=== PATIENT | female | born 1935 | race Two or more races ===

== ENCOUNTER 2017-06-18 12:30 | Emergency (ER) | payer OTHER ==
[~2017-06-18] VITALS: Ht 149.9 cm; Wt 45.8 kg
[2017-06-18 12:37] VITALS: BP 123/66
[2017-06-18] MEDS ORDERED: TETANUS-DIPTH-ACEL PERTUSSIS 0.5ML SYRG IM ONE (13:30)
[2017-06-18] MEDS ORDERED: NEOMYCIN-BACITRACIN-POLYM UNITDOSE PKG TOP OINT TOP ONE (13:30)
== END 2017-06-18 13:40 | disposition home or self-care (01) ==
LOC: ER 12:30
DX: S61.402A Unspecified open wound of left hand, initial encounter (principal); W54.0XXA Bitten by dog, initial encounter; Y93.89 Activity, other specified; Y99.8 Other external cause status; Y92.89 Other specified places as the place of occurrence of the external cause
CPT/HCPCS: 90471; 90715

== ENCOUNTER 2017-11-15 18:54 | Inpatient (IN) | payer OTHER ==
[~2017-11-15] VITALS: Ht 149.9 cm; Wt 49.9 kg
[2017-11-15 20:57] LABS: Basophils # (auto) 0.1 uL; Basophils % (auto) 0.8 % (0.0-2.0); Eosinophils # (auto) 0.1 uL; Eosinophils % (auto) 0.7 % (0.0-7.0); Hematocrit 39.5 % (36.0-46.0); Hemoglobin 12.9 g/dL (12.2-16.2); Lymphocytes # (auto) 1.7 uL; Lymphocytes % (auto) 12.9 % (10.0-50.0); Mean Corpuscular Hemoglobin 31.5 pg (28.0-32.0); Mean Corpuscular Hgb Conc. 32.7 g/dL (32.0-36.0); Mean Corpuscular Volume 96.4 fL (80.0-100.0); Monocytes # (auto) 0.8 uL; Monocytes % (auto) 5.9 % (0.0-12.0); Neutrophils # (auto) 10.5 uL; Neutrophils % (auto) 79.7 % (37.0-80.0); Platelet Count (auto) 152 10^3/uL (140-450); White Blood Cell 13.2 10^3/uL (4.4-10.8)
[2017-11-15 21:13] LABS: INR 0.92 (0.9-1.15); Partial Thromboplastin Time 26.3 sec (22.64-33.71)
[2017-11-15 21:15] LABS: Alanine Aminotransferase 14 U/L (13-56); Albumin 2.9 g/dL (3.4-5.0); Anion Gap 5 (5-15); Aspartate Aminotransferase 12 U/L (15-37); BUN/Creatinine Ratio 16.2; Blood Urea Nitrogen 12 mg/dL (7-18); Calcium 8.6 mg/dL (8.5-10.1); Carbon Dioxide 30 mmol/L (21-32); Chloride 106 mmol/L (98-107); GFR African American 97 mL/min; GFR Non-African American 80 mL/min; Glucose 80 mg/dL (74-106); Magnesium 1.8 mg/dL (1.6-2.6); Potassium 3.9 mmol/L (3.5-5.1); Sodium 141 mmol/L (136-145)
[2017-11-15 21:19] LABS: Alkaline Phosphatase 58 U/L (45-117); Bilirubin, Total 0.5 mg/dL (0.2-1.0); Total Protein 6.2 g/dL (6.4-8.2)
[2017-11-16] VITALS (7 sets, daily range): BP systolic 107–129; BP diastolic 56–77
[2017-11-16] MEDS ORDERED: ACETAMINOPHEN 325 MG TAB PO PRN (00:30)
[2017-11-16] MEDS ORDERED: TEMAZEPAM 15 MG CAP PO PRN (00:30)
[2017-11-16] MEDS ORDERED: ONDANSETRON HCL 4 MG/2 ML VIAL IV PRN (00:30)
[2017-11-16] MEDS ORDERED: MORPHINE SULFATE 4 MG/ML SYR/VIAL IV PRN (00:30)
[2017-11-16] MEDS ORDERED: DOCUSATE SOD 100 MG CAP PO PRN (00:30)
[2017-11-16] MEDS ORDERED: NITROGLYCERIN 0.4 MG SL TAB SL PRN (00:30)
[2017-11-16] MEDS ORDERED: LEVOFLOXACIN 750MG 150 ML IV ONE (00:30)
[2017-11-16] MEDS ORDERED: LEVOFLOXACIN 750MG 150 ML IV SCH (10:00)
[2017-11-16] MEDS: ENOXAPARIN SOD 40 MG/0.4 ML SYRINGE SC SCH (10:03)
[2017-11-16] MEDS: HYDROcodone-ACET 5/325MG TAB PO PRN ×3 (10:04→22:44)
[2017-11-16 10:13] LABS: Urine Bacteria FEW /hpf (None Seen); Urine Blood Negative /uL (Negative); Urine Hyaline Cast FEW /lpf (0 - 2); Urine Specific Gravity 1.021 (1.001-1.035); Urine WBC 3 /hpf (0 - 5)
[2017-11-16] MEDS ORDERED: cefTRIAXone 1GM/10ml IVPUSH 10 ML IV ONE (12:30)
[2017-11-16] MEDS ORDERED: AZITHROMYCIN 500MG/ 250ML 250 ML IV ONE (13:00)
[2017-11-16] MEDS: IPRATROPIUM BROM 0.5 MG/2.5ML INH SOL NEB SCH ×2 (14:45→18:02)
[2017-11-16] MEDS ORDERED: ATORVASTATIN 20 MG TAB PO SCH (22:00)
[2017-11-16] MEDS ORDERED: PATIENTS OWN MEDICATION (simvastatin 20 MG) PO SCH (22:00)
[2017-11-17 04:54] VITALS: BP 110/53
[2017-11-17] MEDS: IPRATROPIUM BROM 0.5 MG/2.5ML INH SOL NEB SCH ×3 (06:00→14:08)
[2017-11-17 06:47] LABS: Basophils # (auto) 0 uL; Basophils % (auto) 0.4 % (0.0-2.0); Eosinophils # (auto) 0.2 uL; Hematocrit 37.7 % (36.0-46.0); Hemoglobin 12.6 g/dL (12.2-16.2); Lymphocytes # (auto) 1.6 uL; Lymphocytes % (auto) 19.2 % (10.0-50.0); Mean Corpuscular Hemoglobin 32.3 pg (28.0-32.0); Mean Corpuscular Hgb Conc. 33.5 g/dL (32.0-36.0); Mean Corpuscular Volume 96.3 fL (80.0-100.0); Monocytes # (auto) 0.6 uL; Monocytes % (auto) 7.5 % (0.0-12.0); Neutrophils # (auto) 5.7 uL; Neutrophils % (auto) 70.9 % (37.0-80.0); Platelet Count (auto) 132 10^3/uL (140-450); Red Blood Cells 3.91 10^6/uL (4.0-5.20); Red Cell Distribution Width 13.9 % (11.8-14.3); White Blood Cell 8.1 10^3/uL (4.4-10.8)
[2017-11-17 07:10] LABS: Albumin 2.5 g/dL (3.4-5.0); BUN/Creatinine Ratio 17.3; Bilirubin, Total 0.4 mg/dL (0.2-1.0); Calcium 8.4 mg/dL (8.5-10.1); Magnesium 2.1 mg/dL (1.6-2.6); Potassium 4.1 mmol/L (3.5-5.1); Total Protein 5.4 g/dL (6.4-8.2)
[2017-11-17 07:30] VITALS: BP 156/54
[2017-11-17] MEDS ORDERED: PRED-559 PO (07:55)
[2017-11-17] MEDS ORDERED: SERT-274 PO (07:58)
[2017-11-17] MEDS ORDERED: ASPI81CH43 PO (07:59)
[2017-11-17] MEDS ORDERED: DEXL60CA3 PO (08:00)
[2017-11-17] MEDS ORDERED: BUDE0.5S IN (08:03)
[2017-11-17 08:35] VITALS: BP 156/54
[2017-11-17] MEDS: ALBUTEROL SULF 2.5 MG/0.5ML(0.5%) NEB SOLN NEB PRN ×2 (08:38→14:08)
[2017-11-17] MEDS: HYDROcodone-ACET 5/325MG TAB PO PRN ×2 (08:42→13:56)
[2017-11-17] MEDS ORDERED: cefTRIAXone 1GM/10ml IVPUSH 10 ML IV SCH (09:00)
[2017-11-17] MEDS ORDERED: AZITHROMYCIN 500MG/ 250ML 250 ML IV SCH (10:00)
[2017-11-17 12:56] VITALS: BP 152/60
[2017-11-17] MEDS: ENOXAPARIN SOD 40 MG/0.4 ML SYRINGE SC SCH (13:45)
[2017-11-17 16:39] VITALS: BP 146/71
== END 2017-11-17 17:15 | DRG 190 ==
LOC: ER 18:54 → OVERFLOW 18:55 → EAST 11-16 12:59
PROVIDERS: ADMIT Nurse Practitioner; ATTEND Internal Medicine Geriatric Medicine
DX: J44.0 Chronic obstructive pulmonary disease with (acute) lower respiratory infection (principal); J13 Pneumonia due to Streptococcus pneumoniae; I50.9 Heart failure, unspecified; M41.9 Scoliosis, unspecified; Z99.81 Dependence on supplemental oxygen; J44.1 Chronic obstructive pulmonary disease with (acute) exacerbation; M19.90 Unspecified osteoarthritis, unspecified site
CPT/HCPCS: 36415; 70450; 71045; 80053; 81001; 83735; 83880; 84484; 85025; 85379; 85610; 85730; 93005; 94640; 94761; 96365; 96366; 96367; 96372; 96375; J1956

== ENCOUNTER 2018-02-06 14:04 | Inpatient (IN) | payer OTHER ==
[~2018-02-06] VITALS: Ht 157.5 cm; Wt 53.9 kg
[~2018-02-06 14:04] MED LIST: ASPI81CH43 PO; BUDE0.5S IN; DEXL60CA3 PO; PRED-559 PO; SERT-274 PO
[2018-02-06 15:04] LABS: Albumin 2.1 g/dL (3.4-5.0); BUN/Creatinine Ratio 35.4; Calcium 8.3 mg/dL (8.5-10.1); Potassium 4.2 mmol/L (3.5-5.1)
[2018-02-06 15:07] LABS: Basophils # (auto) 0 uL; Basophils % (auto) 0.2 % (0.0-2.0); Bilirubin, Total 0.7 mg/dL (0.2-1.0); Eosinophils # (auto) 0 uL; Eosinophils % (auto) 0.2 % (0.0-7.0); Hematocrit 38.1 % (36.0-46.0); Hemoglobin 12.6 g/dL (12.2-16.2); Lymphocytes % (auto) 9.2 % (10.0-50.0); Mean Corpuscular Hemoglobin 32.2 pg (28.0-32.0); Mean Corpuscular Hgb Conc. 33.1 g/dL (32.0-36.0); Mean Corpuscular Volume 97.4 fL (80.0-100.0); Monocytes # (auto) 0.3 uL; Monocytes % (auto) 2.5 % (0.0-12.0); Neutrophils # (auto) 9.1 uL; Neutrophils % (auto) 87.9 % (37.0-80.0); Nucleated Red Blood Cells % 0.1 %; Platelet Count (auto) 162 10^3/uL (140-450); Red Blood Cells 3.91 10^6/uL (4.0-5.20); Red Cell Distribution Width 16.5 % (11.8-14.3); Total Protein 5.9 g/dL (6.4-8.2); White Blood Cell 10.3 10^3/uL (4.4-10.8)
[2018-02-06] MEDS ORDERED: SODIUM CHLORIDE 0.9% 1,000 ML IV ONE (15:20)
[2018-02-06] MEDS ORDERED: ALBUTEROL SULF 2.5 MG/0.5ML(0.5%) NEB SOLN NEB ONE (15:30)
[2018-02-06] MEDS ORDERED: IPRATROPIUM BROM 0.5 MG/2.5ML INH SOL NEB ONE (15:30)
[2018-02-06] MEDS ORDERED: methylPREDNISolone SOD SUCC 125 MG/2 ML VL IV ONE (15:30)
[2018-02-06] MEDS ORDERED: cefTRIAXone 1GM/10ml IVPUSH 10 ML IV ONE (17:45)
[2018-02-06] MEDS: SODIUM CHLORIDE 0.9% 1,000 ML IV SCH (17:51)
[2018-02-06] MEDS ORDERED: TEMAZEPAM 15 MG CAP PO PRN (18:00)
[2018-02-06] MEDS ORDERED: NITROGLYCERIN 0.4 MG SL TAB SL PRN (18:00)
[2018-02-06] MEDS ORDERED: HYDROcodone-ACET 5/325MG TAB PO PRN (18:00)
[2018-02-06] MEDS ORDERED: PROMETHAZINE HCL 25 MG/ML 1ML IV PRN (18:00)
[2018-02-06] MEDS ORDERED: ALBUTEROL SULF 2.5 MG/0.5ML(0.5%) NEB SOLN NEB PRN (18:00)
[2018-02-06] MEDS ORDERED: LORazepam 0.5 MG TAB PO PRN (18:00)
[2018-02-06] MEDS: methylPREDNISolone SOD SUCC 40 MG/ML VL IV SCH ×2 (18:00→23:53)
[2018-02-06] MEDS ORDERED: MORPHINE SULF INJ 2 MG/ML SYRINGE 1ML IV PRN ×2 (18:00)
[2018-02-06] MEDS ORDERED: ACETAMINOPHEN 500 MG TAB PO PRN (18:00)
[2018-02-06] MEDS ORDERED: LACTULOSE 20Gm/30ML SOLN PO PRN (18:00)
[2018-02-06] MEDS: ALBUTEROL SULF 2.5 MG/0.5ML(0.5%) NEB SOLN NEB SCH (18:35)
[2018-02-06] MEDS: IPRATROPIUM BROM 0.5 MG/2.5ML INH SOL NEB SCH (18:35)
[2018-02-06] MEDS ORDERED: TRAZ100T2 PO (18:53)
[2018-02-06] MEDS ORDERED: CLON1TAB PO (18:53)
[2018-02-06] MEDS ORDERED: LORazepam 2MG/ML-1ML VIAL IV ONE (20:30)
[2018-02-06 22:00] VITALS: BP 119/54
[2018-02-06] MEDS: traZODone HCL 50 MG TAB PO SCH (23:13)
[2018-02-07] VITALS (9 sets, daily range): BP systolic 101–151; BP diastolic 36–75
[2018-02-07] MEDS: ALBUTEROL SULF 2.5 MG/0.5ML(0.5%) NEB SOLN NEB SCH ×4 (00:39→18:43)
[2018-02-07] MEDS: IPRATROPIUM BROM 0.5 MG/2.5ML INH SOL NEB SCH ×4 (00:39→18:43)
[2018-02-07] MEDS: BUDESONIDE (INHALATION) 0.5 MG/2 ML NEB NEB SCH ×3 (00:39→18:45)
[2018-02-07] MEDS: methylPREDNISolone SOD SUCC 40 MG/ML VL IV SCH ×3 (05:28→20:12)
[2018-02-07] MEDS: SODIUM CHLORIDE 0.9% 1,000 ML IV SCH (07:11)
[2018-02-07 08:45] LABS: Urine Bacteria NONE SEEN /hpf (None Seen); Urine Blood Negative /uL (Negative); Urine Mucus FEW (None Seen); Urine Specific Gravity 1.015 (1.001-1.035); Urine WBC 1 /hpf (0 - 5)
[2018-02-07] MEDS: AZITHROMYCIN 500MG/ 250ML 250 ML IV SCH (09:51)
[2018-02-07] MEDS: cefTRIAXone 1GM/10ml IVPUSH 10 ML IV SCH (09:51)
[2018-02-07] MEDS: SERTRALINE HCL 50 MG TAB PO SCH (09:52)
[2018-02-07] MEDS: ASPirin 81 mg TAB PO SCH (09:52)
[2018-02-07] MEDS: PANTOPRAZOLE 40 MG TAB PO SCH (09:52)
[2018-02-07] MEDS: ENOXAPARIN SOD 40 MG/0.4 ML SYRINGE SC SCH (09:53)
[2018-02-07] MEDS: clonazePAM 0.5 MG TAB PO PRN ×2 (12:39→21:58)
[2018-02-07] MEDS: OXYCODONE W/ ACETAMINOPHEN 5/325MG TABLET PO PRN (20:11)
[2018-02-07] MEDS: traZODone HCL 50 MG TAB PO SCH (21:57)
[2018-02-08] MEDS: methylPREDNISolone SOD SUCC 40 MG/ML VL IV SCH ×5 (00:53→23:56)
[2018-02-08] MEDS: SODIUM CHLORIDE 0.9% 1,000 ML IV SCH ×2 (00:54→09:15)
[2018-02-08 05:00] VITALS: BP 131/60
[2018-02-08 06:13] LABS: Basophils # (auto) 0 uL; Eosinophils # (auto) 0 uL; Hematocrit 28.2 % (36.0-46.0); Hemoglobin 9.7 g/dL (12.2-16.2); Lymphocytes # (auto) 0.3 uL; Lymphocytes % (auto) 3.1 % (10.0-50.0); Mean Corpuscular Hgb Conc. 34.4 g/dL (32.0-36.0); Mean Corpuscular Volume 95.8 fL (80.0-100.0); Monocytes # (auto) 0.2 uL; Monocytes % (auto) 1.6 % (0.0-12.0); Neutrophils # (auto) 10.3 uL; Neutrophils % (auto) 95.3 % (37.0-80.0); Platelet Count (auto) 163 10^3/uL (140-450); Red Blood Cells 2.95 10^6/uL (4.0-5.20); White Blood Cell 10.8 10^3/uL (4.4-10.8)
[2018-02-08 06:29] LABS: Calcium 8.5 mg/dL (8.5-10.1); Magnesium 2.2 mg/dL (1.6-2.6); Potassium 4.3 mmol/L (3.5-5.1)
[2018-02-08 06:31] LABS: BUN/Creatinine Ratio 37.1
[2018-02-08] MEDS: IPRATROPIUM BROM 0.5 MG/2.5ML INH SOL NEB SCH ×3 (06:41→19:05)
[2018-02-08] MEDS: ALBUTEROL SULF 2.5 MG/0.5ML(0.5%) NEB SOLN NEB SCH ×3 (06:41→19:05)
[2018-02-08] MEDS: BUDESONIDE (INHALATION) 0.5 MG/2 ML NEB NEB SCH ×2 (06:42→19:05)
[2018-02-08 09:01] VITALS: BP 129/67
[2018-02-08] MEDS: AZITHROMYCIN 500MG/ 250ML 250 ML IV SCH (09:14)
[2018-02-08] MEDS: OXYCODONE W/ ACETAMINOPHEN 5/325MG TABLET PO PRN ×3 (09:14→20:14)
[2018-02-08] MEDS: ASPirin 81 mg TAB PO SCH (09:14)
[2018-02-08] MEDS: ENOXAPARIN SOD 40 MG/0.4 ML SYRINGE SC SCH (09:15)
[2018-02-08] MEDS: cefTRIAXone 1GM/10ml IVPUSH 10 ML IV SCH (09:15)
[2018-02-08] MEDS: SERTRALINE HCL 50 MG TAB PO SCH (09:56)
[2018-02-08] MEDS: PANTOPRAZOLE 40 MG TAB PO SCH (09:56)
[2018-02-08 13:00] VITALS: BP 136/56
[2018-02-08 16:58] VITALS: BP 134/64
[2018-02-08 22:00] VITALS: BP 133/58
[2018-02-08] MEDS: ASCORBIC ACID 500 MG TAB PO SCH (22:00)
[2018-02-08] MEDS: PRO-STAT 64 30ML PO SCH (22:00)
[2018-02-08] MEDS: BOOST PLUS 8 ounce PO SCH (22:00)
[2018-02-08] MEDS: traZODone HCL 50 MG TAB PO SCH (22:00)
[2018-02-09] MEDS: ALBUTEROL SULF 2.5 MG/0.5ML(0.5%) NEB SOLN NEB SCH ×4 (00:22→18:50)
[2018-02-09] MEDS: IPRATROPIUM BROM 0.5 MG/2.5ML INH SOL NEB SCH ×4 (00:22→18:50)
[2018-02-09 04:50] VITALS: BP 130/61
[2018-02-09] MEDS: methylPREDNISolone SOD SUCC 40 MG/ML VL IV SCH ×3 (05:51→17:42)
[2018-02-09] MEDS: SODIUM CHLORIDE 0.9% 1,000 ML IV SCH ×2 (05:51→12:31)
[2018-02-09] MEDS: BUDESONIDE (INHALATION) 0.5 MG/2 ML NEB NEB SCH ×2 (06:29→18:51)
[2018-02-09 08:37] VITALS: BP 158/62
[2018-02-09] MEDS: ENOXAPARIN SOD 40 MG/0.4 ML SYRINGE SC SCH (09:50)
[2018-02-09] MEDS: cefTRIAXone 1GM/10ml IVPUSH 10 ML IV SCH (09:50)
[2018-02-09] MEDS: AZITHROMYCIN 500MG/ 250ML 250 ML IV SCH (09:50)
[2018-02-09] MEDS: PANTOPRAZOLE 40 MG TAB PO SCH (09:50)
[2018-02-09] MEDS: ASCORBIC ACID 500 MG TAB PO SCH ×2 (09:51→22:22)
[2018-02-09] MEDS: ASPirin 81 mg TAB PO SCH (09:51)
[2018-02-09] MEDS: MULTIPLE VITAMINS W/ MINERALS TAB PO SCH (09:51)
[2018-02-09] MEDS: SERTRALINE HCL 50 MG TAB PO SCH (09:51)
[2018-02-09] MEDS: OXYCODONE W/ ACETAMINOPHEN 5/325MG TABLET PO PRN ×2 (10:04→20:00)
[2018-02-09] MEDS: PRO-STAT 64 30ML PO SCH ×2 (10:07→22:00)
[2018-02-09] MEDS: BOOST PLUS 8 ounce PO SCH ×2 (10:07→22:22)
[2018-02-09 12:05] VITALS: BP 157/75
[2018-02-09 16:58] VITALS: BP 145/76
[2018-02-09] MEDS: clonazePAM 0.5 MG TAB PO PRN (20:45)
[2018-02-09 21:05] VITALS: BP 130/64
[2018-02-09] MEDS: traZODone HCL 50 MG TAB PO SCH (22:22)
[2018-02-10] MEDS: methylPREDNISolone SOD SUCC 40 MG/ML VL IV SCH ×5 (00:08→23:55)
[2018-02-10] MEDS: IPRATROPIUM BROM 0.5 MG/2.5ML INH SOL NEB SCH ×4 (00:34→20:24)
[2018-02-10] MEDS: ALBUTEROL SULF 2.5 MG/0.5ML(0.5%) NEB SOLN NEB SCH ×4 (00:35→20:24)
[2018-02-10] MEDS: SODIUM CHLORIDE 0.9% 1,000 ML IV SCH ×2 (01:51→09:42)
[2018-02-10 02:57] VITALS: BP 130/64
[2018-02-10 05:00] VITALS: BP 151/75
[2018-02-10] MEDS: BUDESONIDE (INHALATION) 0.5 MG/2 ML NEB NEB SCH ×2 (06:22→20:24)
[2018-02-10 08:39] VITALS: BP 154/79
[2018-02-10] MEDS: cefTRIAXone 1GM/10ml IVPUSH 10 ML IV SCH (09:28)
[2018-02-10] MEDS: ENOXAPARIN SOD 40 MG/0.4 ML SYRINGE SC SCH ×2 (09:28→09:36)
[2018-02-10] MEDS: MULTIPLE VITAMINS W/ MINERALS TAB PO SCH (09:29)
[2018-02-10] MEDS: PANTOPRAZOLE 40 MG TAB PO SCH (09:29)
[2018-02-10] MEDS: OXYCODONE W/ ACETAMINOPHEN 5/325MG TABLET PO PRN ×4 (09:29→20:23)
[2018-02-10] MEDS: BOOST PLUS 8 ounce PO SCH ×2 (09:29→22:40)
[2018-02-10] MEDS: ASPirin 81 mg TAB PO SCH (09:29)
[2018-02-10] MEDS: ASCORBIC ACID 500 MG TAB PO SCH ×2 (09:29→22:41)
[2018-02-10] MEDS: SERTRALINE HCL 50 MG TAB PO SCH (09:29)
[2018-02-10] MEDS: PRO-STAT 64 30ML PO SCH ×2 (09:30→22:40)
[2018-02-10] MEDS: AZITHROMYCIN 500MG/ 250ML 250 ML IV SCH (09:41)
[2018-02-10] MEDS: clonazePAM 0.5 MG TAB PO PRN ×2 (09:41→22:41)
[2018-02-10 10:40] LABS: Hematocrit 30.8 % (36.0-46.0); Hemoglobin 10.2 g/dL (12.2-16.2); Mean Corpuscular Hemoglobin 32.5 pg (28.0-32.0); Mean Corpuscular Hgb Conc. 33.1 g/dL (32.0-36.0); Mean Corpuscular Volume 98.4 fL (80.0-100.0); Platelet Count (auto) 163 10^3/uL (140-450); Red Blood Cells 3.13 10^6/uL (4.0-5.20); Red Cell Distribution Width 16.1 % (11.8-14.3); White Blood Cell 10.5 10^3/uL (4.4-10.8)
[2018-02-10 10:42] LABS: Band Neutrophils % (manual) 0; Basophils % (manual) 0 (0.0-2.0); Blast Cells 0; Eosinophils % (manual) 0 (0-7); Metamyelocytes % 0; Myelocytes % 0; Promyelocytes % 0; Reactive Lymphocytes 0
[2018-02-10 10:56] LABS: INR 0.94 (0.9-1.15); Partial Thromboplastin Time 21.8 sec (23.78-33.04); Prothrombin Time 10.1 sec (9.27-12.13)
[2018-02-10 11:02] LABS: Albumin 2.3 g/dL (3.4-5.0); BUN/Creatinine Ratio 26.7; Bilirubin, Total 0.2 mg/dL (0.2-1.0); Calcium 8.4 mg/dL (8.5-10.1); Potassium 4.2 mmol/L (3.5-5.1); Total Protein 5.3 g/dL (6.4-8.2)
[2018-02-10 13:00] VITALS: BP 143/65
[2018-02-10 13:17] LABS: Lymphocytes % (manual) 2 (10.0-50.0); Monocytes % (manual) 2 (0-12)
[2018-02-10 16:29] VITALS: BP 146/78
[2018-02-10 22:00] VITALS: BP 151/79
[2018-02-10] MEDS: traZODone HCL 50 MG TAB PO SCH (22:40)
[2018-02-11] MEDS: ALBUTEROL SULF 2.5 MG/0.5ML(0.5%) NEB SOLN NEB SCH ×4 (00:25→18:39)
[2018-02-11] MEDS: IPRATROPIUM BROM 0.5 MG/2.5ML INH SOL NEB SCH ×4 (00:25→18:39)
[2018-02-11 05:29] VITALS: BP 147/72
[2018-02-11] MEDS: BUDESONIDE (INHALATION) 0.5 MG/2 ML NEB NEB SCH ×2 (06:13→18:39)
[2018-02-11 06:17] LABS: Hematocrit 28.4 % (36.0-46.0); Hemoglobin 9.7 g/dL (12.2-16.2); Mean Corpuscular Hemoglobin 32.9 pg (28.0-32.0); Mean Corpuscular Volume 96.8 fL (80.0-100.0); Platelet Count (auto) 150 10^3/uL (140-450); Red Blood Cells 2.93 10^6/uL (4.0-5.20); Red Cell Distribution Width 16.1 % (11.8-14.3); White Blood Cell 9.8 10^3/uL (4.4-10.8)
[2018-02-11] MEDS: methylPREDNISolone SOD SUCC 40 MG/ML VL IV SCH ×3 (06:29→18:00)
[2018-02-11] MEDS: SODIUM CHLORIDE 0.9% 1,000 ML IV SCH ×2 (06:29→17:51)
[2018-02-11 06:39] LABS: BUN/Creatinine Ratio 46.4; Calcium 8.3 mg/dL (8.5-10.1); Magnesium 2.4 mg/dL (1.6-2.6)
[2018-02-11 07:24] LABS: Band Neutrophils % (manual) 0; Basophils % (manual) 0 (0.0-2.0); Blast Cells 0; Eosinophils % (manual) 0 (0-7); Metamyelocytes % 0; Myelocytes % 0; Promyelocytes % 0; Reactive Lymphocytes 0
[2018-02-11] MEDS: BOOST PLUS 8 ounce PO SCH ×2 (08:00→22:02)
[2018-02-11] MEDS: PRO-STAT 64 30ML PO SCH ×2 (08:00→22:02)
[2018-02-11 08:20] LABS: Lymphocytes % (manual) 2 (10.0-50.0); Monocytes % (manual) 10 (0-12)
[2018-02-11] MEDS: cefTRIAXone 1GM/10ml IVPUSH 10 ML IV SCH (09:00)
[2018-02-11] MEDS: OXYCODONE W/ ACETAMINOPHEN 5/325MG TABLET PO PRN ×4 (09:23→22:03)
[2018-02-11 09:28] VITALS: BP 164/77
[2018-02-11] MEDS: SERTRALINE HCL 50 MG TAB PO SCH (10:00)
[2018-02-11] MEDS: ENOXAPARIN SOD 40 MG/0.4 ML SYRINGE SC SCH (10:00)
[2018-02-11] MEDS: ASCORBIC ACID 500 MG TAB PO SCH ×2 (10:00→22:02)
[2018-02-11] MEDS: AZITHROMYCIN 500MG/ 250ML 250 ML IV SCH (10:00)
[2018-02-11] MEDS: MULTIPLE VITAMINS W/ MINERALS TAB PO SCH (10:00)
[2018-02-11] MEDS: PANTOPRAZOLE 40 MG TAB PO SCH (10:00)
[2018-02-11] MEDS: ASPirin 81 mg TAB PO SCH (10:00)
[2018-02-11] MEDS: FLUCONAZOLE 200MG/100ML 100 ML IV SCH (10:45)
[2018-02-11] MEDS: LISINOPRIL 5 MG TAB PO SCH (11:00)
[2018-02-11] MEDS ORDERED: cloNIDine HCL 0.1 MG TAB PO PRN (11:00)
[2018-02-11 13:00] VITALS: BP 161/86
[2018-02-11 17:10] VITALS: BP 164/89
[2018-02-11 21:35] VITALS: BP 139/76
[2018-02-11] MEDS: traZODone HCL 50 MG TAB PO SCH (22:02)
[2018-02-11] MEDS: clonazePAM 0.5 MG TAB PO PRN (22:03)
[2018-02-12] MEDS: methylPREDNISolone SOD SUCC 40 MG/ML VL IV SCH ×4 (00:21→18:00)
[2018-02-12] MEDS: ALBUTEROL SULF 2.5 MG/0.5ML(0.5%) NEB SOLN NEB SCH ×3 (00:25→11:39)
[2018-02-12] MEDS: IPRATROPIUM BROM 0.5 MG/2.5ML INH SOL NEB SCH ×3 (00:25→11:39)
[2018-02-12 05:46] VITALS: BP 151/64
[2018-02-12] MEDS: BUDESONIDE (INHALATION) 0.5 MG/2 ML NEB NEB SCH (06:14)
[2018-02-12] MEDS: SODIUM CHLORIDE 0.9% 1,000 ML IV SCH (07:11)
[2018-02-12 09:00] VITALS: BP 155/79
[2018-02-12] MEDS: cefTRIAXone 1GM/10ml IVPUSH 10 ML IV SCH (09:00)
[2018-02-12] MEDS: ASPirin 81 mg TAB PO SCH (10:00)
[2018-02-12] MEDS: ASCORBIC ACID 500 MG TAB PO SCH (10:00)
[2018-02-12] MEDS: ENOXAPARIN SOD 40 MG/0.4 ML SYRINGE SC SCH (10:00)
[2018-02-12] MEDS: PRO-STAT 64 30ML PO SCH (10:00)
[2018-02-12] MEDS: FLUCONAZOLE 200MG/100ML 100 ML IV SCH (10:00)
[2018-02-12] MEDS: SERTRALINE HCL 50 MG TAB PO SCH (10:00)
[2018-02-12] MEDS: PANTOPRAZOLE 40 MG TAB PO SCH (10:00)
[2018-02-12] MEDS: BOOST PLUS 8 ounce PO SCH (10:00)
[2018-02-12] MEDS: MULTIPLE VITAMINS W/ MINERALS TAB PO SCH (10:00)
[2018-02-12] MEDS: LISINOPRIL 5 MG TAB PO SCH (10:00)
[2018-02-12 13:00] VITALS: BP 167/79
[2018-02-12] MEDS: clonazePAM 0.5 MG TAB PO PRN (13:21)
[2018-02-12] MEDS: OXYCODONE W/ ACETAMINOPHEN 5/325MG TABLET PO PRN (15:48)
[2018-02-12 17:23] VITALS: BP 156/95
== END 2018-02-12 18:15 | disposition hospice, home (50) | DRG 193 ==
LOC: ER 14:04 → EDBD 14:04 → TELE 14:05 → TELE-CENTR 20:52
PROVIDERS: ADMIT Internal Medicine; ATTEND Family Medicine
DX: J18.9 Pneumonia, unspecified organism (principal); E43 Unspecified severe protein-calorie malnutrition; J96.21 Acute and chronic respiratory failure with hypoxia; J44.0 Chronic obstructive pulmonary disease with (acute) lower respiratory infection; J44.1 Chronic obstructive pulmonary disease with (acute) exacerbation; K21.9 Gastro-esophageal reflux disease without esophagitis; F17.200 Nicotine dependence, unspecified, uncomplicated; F41.9 Anxiety disorder, unspecified; G89.29 Other chronic pain; I11.0 Hypertensive heart disease with heart failure; I25.10 Atherosclerotic heart disease of native coronary artery without angina pectoris; B96.20 Unspecified Escherichia coli [E. coli] as the cause of diseases classified elsewhere; I50.9 Heart failure, unspecified; K44.9 Diaphragmatic hernia without obstruction or gangrene; M19.90 Unspecified osteoarthritis, unspecified site; Z51.5 Encounter for palliative care; M54.9 Dorsalgia, unspecified; Z80.3 Family history of malignant neoplasm of breast; Z68.21 Body mass index [BMI] 21.0-21.9, adult
CPT/HCPCS: 36415; 71045; 71046; 71250; 80048; 80053; 81001; 82607; 83735; 83880; 84443; 84484; 85007; 85025; 85027; 85610; 85730; 87040; 87070; 87077; 87081; 87186; 87205; 93005; 94640; 94761; 96361; 96365; 96375; 97110; 97116; 97163; 97530; J1450